=== PATIENT | male | born 1960 | race Caucasian/White ===

== ENCOUNTER 2016-09-20 14:41 | Emergency (ER) | payer OTHER ==
[~2016-09-20] VITALS: Ht 182.9 cm; Wt 100.0 kg
[~2016-09-20 14:41] MED LIST: BISO1TAB PO; BISO1TAB31 PO; LISI-126 PO
--- OUTSIDE RECORDS SUMMARY | 2016-09-20 14:45 | XMS REPORT | Referral Summary ---
Author Organization Unknown Address Unknown Phone Unavailable Care Team Providers Care Insights Strategist Name Role Phone Azam Jimenez Primary Care Physician [phone] Encounter [facility] [id number] Date(s): 06/22/14 - 06/22/14 [address], [address] [place] [id number] Discharge Diagnosis: Hyperactivity Discharge Disposition: Home or Self Care Attending Physician: Farhan Manjarrez MD Admitting Physician: Farhan Manjarrez MD Referring Physician: Star Jimenez MD Vital Signs Most recent to 1 oldest [Reference Range]: Temperature Tympanic 36.3 degC [36.6-38.1 degC] *LOW* (06/22/14 11:01 AM) Apical Heart Rate 84 bpm [60-100 bpm] (06/22/14 11:01 AM) Blood Pressure 148/92 mmHg [90-140/60-90 mmHg] *HI* (06/22/14 11:01 AM) Most recent to 1 oldest [Reference Range]: SpO2 98 % (06/22/14 11:01 AM) Problem List Condition Effective Dates Status Health Status Informant Obesity(Confirmed) Active patient Allergies, Adverse Reactions, Alerts No Known Medication Allergies Medications atenolol 100 mg oral tablet 1 tabs, Oral, Daily, # 30 tabs, 0 Refill(s) Start Date: 06/22/14 Status: Ordered Augmentin 875 mg-125 mg oral tablet 1 tabs, Oral, q12hr, # 20 tabs, 0 Refill(s) Start Date: 06/22/14 Stop Date: 07/02/14 Status: Ordered lisinopril-hydrochlorothiazide 20 mg-25 mg oral tablet 1 tabs, Oral, Daily, # 30 tabs, 0 Refill(s) Start Date: 06/22/14 Status: Ordered Xanax 0.5 mg oral tablet See Instructions, as needed for anxiety, 1-2 tabs Oral q8hr PRN, # 24 tabs, 0 Refill(s) Special Instructions: 1-2 tabs Oral q8hr PRN Start Date: 06/22/14 Stop Date: 06/26/14 Status: Ordered ZyrTEC Daily, 0 Refill(s) Start Date: 06/22/14 Status: Ordered Results No data available for this section Immunizations No data available for this section Procedures No data available for this section Social History Social History Type Response Smoking Status Never smoker Assessment and Plan Extracted from: Title: Office Visit Note Author: Farhan Manjarrez MD Date: 06/22/14 Assessment/Plan Hyperactivity I think this could be a manic or hypomanic episode. I'm giving a prescription of Xanax to help settle things down some. I would like you to see your primary care doctor on Tuesday to see if further psychiatric evaluation needs to be done. I recommend that you not be left alone over the weekend. He should not be driving. If you're getting worse go to the ER. Orders: ALPRAZolam, See Instructions, as needed for anxiety, 1-2 tabs Oral q8hr PRN, # 24 tabs, 0 Refill(s)
--- OUTSIDE RECORDS SUMMARY | 2016-09-20 14:45 | XMS REPORT | Continuity of Care Document ---
Author Author [facility] Organization [facility] Address Unknown Phone Unavailable Allergies Active Description Code Type Severity Reaction Onset Reported/Identified Relationship to Patient Clinical Status Yes No Known Medication Allergies NKMA N/A N/A 06/22/2014 Medications Problems Procedures Results Encounters ACCT No. Visit Date/Time Discharge Status Pt. Type Provider Facility Loc./Unit Complaint [id number] 06/22/2014 10:25:00 2014 23:59:00 DIS Outpatient Farhan Manjarrez [facility] New IC NOT ABLE TO SLEEP HAVE ANXIETY
[2016-09-20 14:53] VITALS: TEMP 98.7; Ht 182.9 cm; Wt 100.0 kg
[2016-09-20] MEDS ORDERED: ATEN100T PO (15:07)
[2016-09-20] MEDS ORDERED: PARO10TA72 PO (15:09)
[2016-09-20] MEDS ORDERED: LISI1TAB11 PO (15:09)
[2016-09-20] MEDS ORDERED: AMLO10TA2 PO (15:09)
[2016-09-20] MEDS ORDERED: KETOROLAC 60mg/2ml INJECTION IM ONE (15:15)
[2016-09-20] MEDS ORDERED: ORPHENADRINE 60mg/2ml INJECTION IM ONE (15:15)
--- OUTSIDE RECORDS SUMMARY | 2016-09-20 15:31 | XMS REPORT | Continuity of Care Document ---
Author Author [facility] Organization [facility] Address Unknown Phone Unavailable Allergies Active Description Code Type Severity Reaction Onset Reported/Identified Relationship to Patient Clinical Status Yes No Known Medication Allergies NKMA N/A N/A 06/22/2014 Medications Problems Procedures Results Encounters ACCT No. Visit Date/Time Discharge Status Pt. Type Provider Facility Loc./Unit Complaint [id number] 06/22/2014 10:25:00 2014 23:59:00 DIS Outpatient Farhan Manjarrez [facility] New [place] NOT ABLE TO SLEEP HAVE ANXIETY
--- NOTE | 2016-09-20 15:40 | ERPDOC ---
Departure Disposition Decision Date: September 20, 2016 Disposition Decision Time: 16:12 Disposition: 01 DISCHARGED HOME, SELF-CARE Impression Impression Impression: Primary Impression: Lumbar strain Encounter type: initial encounter Qualified Codes: S39.012A - Strain of muscle, fascia and tendon of lower back, initial encounter Severity: Mild Condition: Improved Seen By: Physician only Referrals: DREW MARIN MD (Family) 1 Day Patient Instructions: Acute Low Back Pain (ED) Problems/Meds/Labs Reviewed?: Yes Medications reviewed and manag: Yes Departure Forms: Return to Work/School Permit Return to Work/School Date: September 22, 2016 Follow up care ordered?: Yes Mental Status: Alert, Oriented Scripts Cyclobenzaprine HCl (Cyclobenzaprine HCl) 10 Mg Tablet 1 TAB PO TID for PAIN &/OR SPASM, #15 TAB 0 Refills Prov: TRINO SEXTON DO 09/20/16 Ibuprofen (Ibuprofen) 800 Mg Tablet 1 TAB PO Q8H Y for PAIN for 10 Days, #30 TAB 0 Refills Prov: TRINO SEXTON DO 09/20/16 HPI - Back Pain General Chief Complaint: Back Pain or Injury Stated Complaint: BACK PAIN, POSS THROWN OUT Time Seen by Provider: 14:50 Source: patient (Patient presents to the ER with low back pain. Patient apparently was walking with a small child, while holding the child's hand. The child apparently became" Weight", pulling on the patient, injuring his back. ) Exam Limitations: no limitations HPI - Back Pain Occurred At: home Onset/Timing: Changing over time Duration: 1-3 hrs Pain/Severity Scale: Now & Worst: 8/10 Severity/Quality: moderate Location: paraspinous muscles (Lumbar) Radiation: other (No Radiation) Method of Injury/Context: other Modifying Factors: IMPROVES WITH: pain medication, rest, WORSE WITH: movement Associated Sypmtoms: lower back pain, muscle spasms, other (No saddle Anesthesia), DENIES: fever, loss of bladder control, loss of bowel control, numbness in legs/feet, sensory/motor loss, tingling in legs/feet, weakness Hx of Similar Symptoms: No Allergies: Coded Allergies: amoxicillin (Verified Allergy, Unknown, 09/20/16) Past History Past Medical History Metabolic: hypertension Surgical History Denies Surgeries Family History Family History: Negative Vaccines Hx Influenza Vaccination: No Social History Smoking Status: Unknown if ever smoked Does patient use chewing tobac: No Second Hand Exposure: No Substance Use Type: does not use Alcohol Intake: none Housing: house Current Occupational Status: employed Advance Directives: Yes Full Code Record Review Pertinent history updated: Yes Review of Systems Constitutional Constitutional: DENIES: chills, fever Eyes Lids/Accessories: DENIES: erythema, swelling ENMT Ears: DENIES: erythema, pain Balance: DENIES: ataxia, vertigo Sinuses: DENIES: congestion, rhinorrhea Mouth/Throat: DENIES: sore throat Cardiovascular Cardiac: DENIES: chest pain, dyspnea on exertion, orthopnea Rhythm/Rate: DENIES: tachycardia Pulmonary Respiratory: DENIES: cough, dyspnea, sputum GI Upper Abdomen: DENIES: nausea, pain, vomiting Lower Abdomen: DENIES: constipation, diarrhea, pain General: DENIES: dysuria Musculoskeletal General: pain, see HPI, spasm, tenderness, DENIES: cramps, weakness Integumentary Skin: DENIES: color change, itching, rash Neurological General: DENIES: ataxia, change in strength, headache, numbness, poor coordination, seizures, syncope, vertigo, weakness Psychiatric Psychiatric: DENIES: anxiety, depression, nervousness Hematologic/Lymphatic Hematologic/Lymphatic: DENIES: anemia Allergic/Immunological Allergic/Immunoligical: DENIES: sneezing All other Systems All Other Systems: Reviewed and Negative Physical Exam General General Nourishment: well nourished, well developed, appears stated age, adult General Body Habitus: well groomed Vitals and Pain First Documented Vital Signs Date Time Temp Pulse Resp B/P Pulse Ox O2 Delivery O2 Flow Rate FiO2 09/20/16 14:53 98.7 77 18 142/73 92 Room Air Weight: Kilograms: 100.000 Height (feet): 6 Height (inches): 0 Triage Pain Scale: RN VS reviewed by Provider: Yes Eyes (brief) Eyes Brief: found: EOMI, PERRL ENMT (brief) ENMT Brief: FOUND: TM clear, TM good light reflex, mucosa moist, NOT FOUND: pharnyx erythema Neck (brief) Neck: FOUND: trachea midline, NOT FOUND: adenopathy, tenderness, tracheal deviation Respiratory (brief) Respiratory: FOUND: clear all eubanks, equal bilaterally Cardiovascular (brief) Cardiac: FOUND: regular rate, regular rhythm Capillary Refill: <2 sec Pulses: all distal extremities, equal, strong Abdomen (brief) Abdominal Brief: FOUND: bowel normo active x4, soft, NOT FOUND: distended, tender Lymphatic (brief) Lymphatic Brief: NOT FOUND: adenopathy Musculoskeletal (brief) Musculoskeletal Brief: FOUND: other (No mid-line vertebral tenderness), spasm, tenderness (Left Lumbar Paraspinal muscles), NOT FOUND: deformity, loss of motion Integumentary (brief) Integumentary Brief: FOUND: pink, warm Neurologic (brief) Neurological Brief: FOUND: CN w/o gross def to obs, DTR 2/4 all extremities, gait w/o gross def to obs, motor-no gross deficits, other (Sitting staight leg negative), sensory-no gross deficits, NOT FOUND: ataxia Psychiatric (brief) Psychiatric Brief: FOUND: alert, attentive, normal affect, oriented Differential Diagnoses Considering: Disc Herniation, Compression Fracture, Fracture, Lumbar Sprain, Lumbar Strain, Thoracic Sprain, Thoracic Strain, Other Progress Results/Orders Orders Procedure Category Date Status Time Lumbar Spine 2-3 Views RAD 09/20/16 Resulted Ketorolac (Toradol) PHA 09/20/16 Complete 15:15 Orphenadrine (Norflex) PHA 09/20/16 Complete 15:15 Medications Current ED Medications Ketorolac Tromethamine (Toradol) 60 mg O ONCE IM Last administered on 15:13; Start 09/20/16 at 15:15; Stop 09/20/16 at 15:16; Status DC Orphenadrine Citrate (Norflex) 60 mg O ONCE IM Last administered on 09/20/16 15:13; Start 09/20/16 at 15:15; Stop 09/20/16 at 15:16; Status DC Progress Progress Patient is feeling better following medications and is wanting to go home Xray Xray : Reason for Exam: Low Back Pain Xray: L-Spine Interpretation: Abnormal (DJD without fracture or subluxation), Reviewed Written Report TRINO SEXTON DO September 20, 2016 15:40
--- NOTE | 2016-09-20 16:04 | DI ---
Indication: ITS.REASON: low back pain PROCEDURE: LUMBAR SPINE 2-3 VIEWS: Encounter: Initial Comparison: None Findings: The vertebral body heights and the alignments appear relatively well-preserved. There is moderate degenerative disc disease with fairly large anterior retroverted bony spurs at L3-4 and L4-5 with sparing of L5-S1. There are mild changes at the other levels. No definite subluxation. No definite fracture or bony destructive process. There is moderate calcification of the abdominal aorta without definite detectable aneurysmal dilation. Impression: Moderate degenerative disc disease without definite fracture or subluxation. .
[2016-09-20] MEDS ORDERED: CYCL-375 PO (16:15)
[2016-09-20] MEDS ORDERED: IBUP-1547 PO (16:15)
[2016-09-20 16:30] VITALS: BP 142/85; PULSE 69; RESP 18; O2SAT 97
== END 2016-09-20 16:30 | disposition home or self-care (01) ==
LOC: ED 14:41
DX: S39.012A Strain of muscle, fascia and tendon of lower back, initial encounter (principal); X50.9XXA Other and unspecified overexertion or strenuous movements or postures, initial encounter; Y93.01 Activity, walking, marching and hiking; Y92.009 Unspecified place in unspecified non-institutional (private) residence as the place of occurrence of the external cause; Y99.8 Other external cause status
CPT/HCPCS: 72100; 96372; 99283; J1885; J2360